=== PATIENT | male | born 2000 | race Caucasian/White ===

== ENCOUNTER 2023-08-22 22:16 | Emergency (ER) | payer BC, SELFPAY ==
--- NOTE | ~2023-08-22 | XR_ITS ---
Left ankle Technique: AP, oblique, and lateral views were obtained. Clinical History: Pain Findings: No acute fracture or dislocation is seen. Osseous alignment is anatomic. Ankle mortise and other visualized joint spaces are preserved. Soft tissues are otherwise unremarkable. Impression: Unremarkable left ankle. Reviewed, dictated and finalized at location . Impression: Unremarkable left ankle.
[2023-08-22 22:22] VITALS: BP 149/94; PULSE 82; RESP 16; TEMP 36.9; O2SAT 100
--- NOTE | 2023-08-22 23:22 | ED.LOWEXIN ---
HPI - Extremity Injury (Lower) General Chief Complaint: Extremity Injury, Lower Stated Complaint: ROLLED LFT ANKLE Time Seen by Provider: 08/22/23 22:32 Source: patient Mode of arrival: ambulatory Limitations: no limitations History of Present Illness HPI Narrative: This is a 22-year-old male that presents to the emergency department after an ankle injury. Reports he rolled his ankle walking down the driveway. Has had swelling and pain since. Denies decreased range of motion or numbness. Related Data Allergies Allergy/AdvReac Type Severity Reaction Status Date / Time No Known Allergies Allergy Verified 08/22/23 22:25 Review of Systems Review of Systems: CONSTITUTIONAL: Denies fever MUSCULOSKELETAL: Reports joint pain, and myalgia. NEUROLOGIC: Denies numbness All systems reviewed & are unremarkable except as noted in HPI and below PMFSH Past Medical History Medical History (Updated 08/23/23 @ 00:09 by Izzy Burks PA-C) No active medical problems Family History Family History (Updated 10/14/16 @ 14:50 by DOCTOR UNKNOWN) Father Family history of type 2 diabetes mellitus Social History Social History Smoking status: Never smoker Alcohol intake: never Exam Narrative: GENERAL: Well-appearing, well-nourished, and in no acute distress. HEAD: Normocephalic, atraumatic. EYES: EOMI. EXTREMITIES: Normal range of motion. Mild edema about the left lateral malleoli, tender to palpation. Normal DP pulse. Normal sensation SKIN: Warm, dry, no rash. NEURO: No focal deficits. Alert and oriented x3. PSYCH: Normal mood and affect Course Course Emergency Course: patient and family updated on workup and agree with plan of care Vital Signs Vital signs: Vital Signs Temperature 98.4 F 08/22/23 22:22 Pulse Rate 82 08/22/23 22:22 Respiratory Rate 16 08/22/23 22:22 Blood Pressure 149/94 H 08/22/23 22:22 Pulse Oximetry 100 08/22/23 22:22 Oxygen Delivery Room Air 08/22/23 22:22 Temperature 98.4 F 08/22/23 22:22 Pulse Rate 82 08/22/23 22:22 Respiratory Rate 16 08/22/23 22:22 Blood Pressure 149/94 H 08/22/23 22:22 Pulse Oximetry 100 08/22/23 22:22 Oxygen Delivery Room Air 08/22/23 22:22 MDM - Extremity Injury (Lower) MDM Narrative Medical decision making narrative: Patient presents to the ER for left ankle pain after a twisting injury. Patient is neurovascularly intact. No acute osseous abnormalities noted on x-ray. Patient was placed in an Juan José wrap. Reports he was crutches. Instructed on further care ankle sprain. He is to follow up with primary provider. He was given warnings to return to the ER Differential Diagnosis Differential diagnosis: Likely ankle sprain and strain and ankle fracture Imaging Data My impression: Ankle x-ray: No acute osseous abnormalities Critical Care Time Critical Care Time Critical Care Time: No Discharge Plan Discharge Clinical Impression: Ankle sprain and strain Patient Disposition: Home, Self-Care Condition: Stable Instructions: Ankle Sprain (ED) Additional Instructions: Return to the ER if you experience fever, redness and swelling of your extremity, numbness or any other symptoms that are concerning to you Wear JUAN JOSÉ wrap and use crutches. No weight on the affected leg until able to bear weight without pain. Ice and elevate extremity. Pain medication as needed and directed. Follow up with your doctor for further care. Follow-up/Referrals: PHYSICIAN NOT ON STAFF,NONSTAFF [Primary Care Provider] - Po Ricketts MD [Physician] -
[2023-08-23 00:54] VITALS: BP 117/74; PULSE 81; RESP 16; O2SAT 99
== END 2023-08-23 01:35 | disposition home or self-care (01) ==
PROVIDERS: Emergency Provider Physician Assistant
DX: S93.402A Sprain of unspecified ligament of left ankle, initial encounter (principal); S96.912A Strain of unspecified muscle and tendon at ankle and foot level, left foot, initial encounter; X50.9XXA Other and unspecified overexertion or strenuous movements or postures, initial encounter
CPT/HCPCS: 73610; 99283